=== PATIENT | female | born 1980 | race Caucasian/White ===

== ENCOUNTER 2025-03-29 14:26 | Outpatient (REF) | payer OTHER, SELFPAY ==
--- OUTSIDE RECORDS SUMMARY | 2025-03-29 14:43 | XMS_ITS | Clinical Summary ---
Author Organization [facility], Address [address] [address] Phone Care Team Providers Care Banquet Server On Call Name Role Phone Shelli Jordan NP Primary Care Provider [phone] Allergies Active Allergy Reactions Criticality Noted Date Comments Other Shortness of breath High 12/27/2021 LOCAL ANESTHETICS- TYPE ANTIARRHYTHMICS. Patient reports she had SOB after waking up from procedure. Medications omeprazole (PriLOSEC) [address] capsule Take 20 mg by mouth in the morning and 20 mg in the evening. Do not crush or chew. . Active torsemide (DEMADEX) 20 MG tablet Take 20 mg by mouth 1 (one) time each day Active SUMAtriptan (IMITREX) 25 MG tablet Take 25 mg by mouth 1 (one) time if needed for migraine May repeat dose once in 2 hours if no relief. Do not exceed 2 doses in 24 hours. Active ondansetron (ZOFRAN) 4 MG tablet Take 4 mg by mouth every 8 (eight) hours if needed for nausea or vomiting Active cetirizine (ZyrTEC) 10 MG tablet Take 10 mg by mouth 1 (one) time each day Active carvedilol (COREG) 12.5 MG tablet Take 12.5 mg by mouth in the morning and 12.5 mg in the evening. Take with meals. Active spironolactone (ALDACTONE) 25 MG tablet Take 25 mg by mouth 1 (one) time each day Active amitriptyline (ELAVIL) 75 MG tablet Take 225 mg by mouth every night Active Dapagliflozin Propanediol 10 MG tablet Take 10 mg by mouth daily Active cholecalciferol (VITAMIN D-3) 25 MCG (1000 UT) tablet Take 1,000 Units by mouth 1 (one) time each day 2 Active metFORMIN XR (GLUCOPHAGE-XR) 500 MG 24 hr tablet Take 500 mg by mouth 1 (one) time each day 2 Active Entresto 97-103 MG per tablet Take 1 tablet by mouth 2 (two) times a day 2 Active Multiple Vitamin (multivitamin) tablet Take 1 tablet by mouth 1 (one) time each day Active Active Problems Problem Noted Date Diagnosed Date Lesion of liver 01/02/2022 Metastatic basal cell carcinoma 01/02/2022 Congestive heart failure 01/02/2022 Sickle cell trait 01/02/2022 Diabetes mellitus 12/27/2021 Cardiomyopathy 12/27/2021 Overview (12/27/2021): NON ISCHEMIC Chronic back pain 12/27/2021 Headache 12/27/2021 Anxiety 12/27/2021 Depressive disorder 12/27/2021 Infiltrating ductal carcinoma of breast, stage 3 <Female> 08/03/2014 Obesity 06/05/2014 Vitamin D deficiency 05/02/2014 Benign hypertension 05/02/2014 Family History Medical History Relation Comments Breast cancer Mother Relation Status Comments Mother Social History Tobacco Use Types Packs/Day Years Used Date Smoking Tobacco: Never Smokeless Tobacco: Never Alcohol Use Standard Drinks/Week Comments Yes 0 (1 standard drink = 0.6 oz pur e alcohol) Occasionally Comments Unknown Sex and Gender Information Value Date Recorded Sex Assigned at Not on file Legal Sex Female 4:37 PM EST Gender Identity Not on file Sexual Orientation Not on file Last Filed Vital Signs Vital Sign Reading Time Taken Comments Blood Pressure 102/67 01/02/2022 9:03 AM EDT Pulse 60 01/02/2022 9:03 AM EDT Temperature 36.4 C (97.5 F) 01/02/2022 9:03 AM EDT Respiratory Rate 16 01/02/2022 9:03 AM EDT Oxygen Saturation 97% 01/02/2022 9:03 AM EDT Inhaled Oxygen Concentration - - Weight 98.9 kg (218 lb) 01/02/2022 9:03 AM EDT Height 165.1 cm (5' 5 ) 01/02/2022 9:03 AM EDT Body Mass Index 36.28 01/02/2022 9:03 AM EDT Plan of Treatment Health Maintenance Due Date Last Done Comments Hepatitis B Vaccine (1 of 3 - 19+ 3-dose series) 12/16 Pneumococcal Vaccine: Peds ( 0 to 5 Years) and At-Risk Patients (6 to 49 Years) (1 of 2 - PCV) 1997 Diabetes: Hemoglobin A1C 12/27/2021 Diabetes: Ophthalmology Exam 12/27/2021 Diabetes: Pedal Pulse Checked 12/27/2021 Diabetes: Sensory Foot Exam 12/27/2021 Diabetes: Visual Foot Exam 12/27/2021 Influenza Vaccine (#1) 2025 Insurance [facility] Medicaid Care Teams Banquet Server On Call Relationship Specialty Start Date End Date Shelli Jordan NP [address] [place] [id number] PCP - General Internal Medicine 12/27/21
[2025-03-29 16:37] LABS: MANUAL DIFF FLAG NO
[2025-03-29 16:53] LABS: Hematocrit 38.4 % (37.0-47.0); Hemoglobin 12.9 g/dl (12.0-16.0); Imm Gran Abs Auto 0.07 X10*3/uL (0.00-0.03); Imm Gran Pct Auto 0.7 % (0.0-0.4); Lymphocytes Absolute Auto 2.6 X10*3/uL (1.2-4.9); Mean Corpuscular HGB Conc 33.6 g/dl (31.0-35.0); Mean Corpuscular Hemoglobin 28.7 pg (27.0-33.0); Mean Corpuscular Volume 85.5 fL (80.0-98.0); NRBC Abs Auto 0.000 X10*3/uL (0.0-0.012); NRBC Pct Auto 0.0 /100WBC (0.0-0.2); Platelet Count 204 X10*3/uL (160-400); Red Blood Count 4.49 X10*6/uL (4.20-5.50); White Blood Count 9.4 X10*3/uL (4.8-10.8)
[2025-03-29 17:13] LABS: Alanine Aminotransferase 37 U/L (0-31); Albumin Level 4.7 g/dL (3.5-5.0); Alkaline Phosphatase 99 U/L (39-117); Anion Gap 18 (12-20); Aspartate Amino Transferase 47 U/L (5-31); Blood Urea Nitrogen 24 mg/dL (9-16); Calcium 9.9 mg/dL (8.4-10.2); Carbon Dioxide 33 mmol/L (22-29); Chloride 95 mmol/L (96-108); Cholesterol 138 mg/dL (<200); Estimated Glomerular Filt Rate 51; HDL Cholesterol 59 mg/dL (>40); Potassium 3.7 mmol/L (3.3-5.1); Sodium 142 mmol/L (135-145); Total Protein 7.9 g/dL (6.5-8.0); Triglycerides 95 mg/dL (<150)
[2025-03-29 17:30] LABS: Free T4 (Free Thyroxine) 1.07 ng/dL (0.71-1.85); Thyroid Stimulating Hormone 3.97 uIU/mL (0.32-4.0)
== END 2025-03-29 14:27 | disposition home or self-care (01) ==
LOC: HO.HHCL 14:26
PROVIDERS: Visit Provider Registered Nurse Psychiatric/Mental Health
DX: Z01.84 Encounter for antibody response examination (principal); Z79.899 Other long term (current) drug therapy
CPT/HCPCS: 36415; 80053; 80061; 82248; 84439; 84443; 85025